=== PATIENT | female | born 1970 | race Caucasian/White ===

== ENCOUNTER 2017-11-05 10:08 | Emergency (ER) | payer OTHER ==
[~2017-11-05] VITALS: Ht 154.9 cm; Wt 52.2 kg
[~2017-11-05 10:08] MED LIST: AUGMENTIN 875-1 EACH PO; BACTRIM DS TAB1 EACH PO; CYCLOBENZAPRINE10 M1 PO; FLUOXETINE HCL40 M1 PO; IBUPROFEN800 M1 PO; LINZESS145 MC1 PO; MOBIC15 M1 PO; PERCOCET 5-3251 EACH PO; POTASSIUM 25 M25 MEQ PO; PROAIR HFA8.5 GM INH
[2017-11-05 10:10] VITALS: BP 162/91
[2017-11-05] MEDS ORDERED: LINZESS290 MC1 PO (11:01)
--- NOTE | 2017-11-05 11:20 | ED GI/GU/ABDOMINAL COMPLAINT ---
History of Present Illness General Chief Complaint: Female Urogenital Problems Stated Complaint: ? KIDNEY INFECTION Source: patient Exam Limitations: no limitations Vital Signs & Intake/Output Vital Signs & Intake/Output Vital Signs Date Time Temp Pulse Resp B/P B/P Pulse O2 O2 Flow FiO2 Mean Ox Delivery Rate 11/05 1010 98.2 79 15 162/91 100 Room Air Room Air Allergies Coded Allergies: No Known Allergies (11/05/17) Reconcile Medications Fluoxetine HCl 40 MG CAPSULE 1 CAP PO DAILY DEPRESSION (Reported) Hydrocodone/Acetaminophen (Hydrocodon-Acetaminophen 5-325) 5 MG-325 MG TABLET 1-2 TAB PO Q4-6 PRN PRN PAIN Ibuprofen 800 MG TABLET 1 TAB PO TIDPRN CHRONIC BACK PAIN (Reported) Linaclotide (Linzess) 290 MCG CAPSULE 1 CAP PO DAILY GI (Reported) Triage Note: PT TO ED FOR C/C OF BILATERAL FLANK PAIN X 2 WEEKS, AND HEMATURIA X A COUPLE OF DAYS. PT REPORTS +DYSURIA. RECENTLY DIAGNOSED AND TREATED AT [facility] A MONTH AGO FOR SAME AND DIAGNOSED WITH KIDNEY INFECTION. Triage Nurses Notes Reviewed? yes ? n Is pt currently ? No Onset: Abrupt Duration: week(s):, constant Timing: recent history Quality/Severity: moderate Location: left flank, right flank No Modifying Factors: none HPI: 47-year-old female comes into the emergency room complaints of bilateral flank pain. Patient reports that the symptoms have going on for the past month. She was diagnosed with a kidney infection. Denies any fever or vomiting. She has increased urination. Denies any abdominal pain. She comes in for further evaluation. Past History Travel History Traveled to [place] past 21 day No Medical History Any Pertinent Medical History? 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 No Review of Systems Review of Systems Constitutional: Reports: no symptoms. EENTM: Reports: no symptoms. Respiratory: Reports: no symptoms. Cardiovascular: Reports: no symptoms. GI: Reports: no symptoms. Genitourinary: Reports: no symptoms. Musculoskeletal: Reports: see HPI. Skin: Reports: no symptoms. Neurological/Psychological: Reports: no symptoms. Hematologic/Endocrine: Reports: no symptoms. Immunologic/Allergic: Reports: no symptoms. All Other Systems: Reviewed and Negative Physical Exam Physical Exam General Appearance: well developed/nourished, alert, awake Head: atraumatic Eyes: Bilateral: normal appearance, EOMI. Ears, Nose, Throat, Mouth: hearing grossly normal, moist mucous membrane Neck: normal inspection Respiratory: no respiratory distress Cardiovascular: regular rate/rhythm Gastrointestinal: soft, non-tender Back: CVA tenderness (R), CVA tenderness (L) Extremities: normal range of motion Neurologic/Psych: awake, alert, oriented x 3 Skin: intact, normal color Core Measures ACS in differential dx? No Sepsis Present: No Sepsis Focused Exam Completed? No Progress Differential Diagnosis: appendicitis, kidney stone, UTI/pyelo, muscle strain, shingles Plan of Care: Orders Procedure Date/time Status COMPREHENSIVE METABOLIC PANEL 11/05 1054 Complete CBC WITHOUT DIFFERENTIAL 11/05 1054 Complete URINE 11/05 1039 Complete URINALYSIS 11/05 1014 Complete Laboratory Tests 11/05/17 1121: Anion Gap 11, Estimated GFR > 60, BUN/Creatinine Ratio 20.0, Glucose 86, Calcium 9.2, Total Bilirubin 0.4, AST 23, ALT 32, Alkaline Phosphatase 47, Total Protein 6.3, Albumin 3.6, Globulin 2.7, Albumin/Globulin Ratio 1.3, CBC w Diff NO MAN DIFF REQ, RBC 3.96 L, MCV 93.8, MCH 32.2 H, MCHC 34.4, RDW 15.9 H, MPV 8.3, Gran % 48.8, Lymphocytes % 37.3, Monocytes % 12.2 H, Eosinophils % 1.1, Basophils % 0.6, Absolute Granulocytes 2.1, Absolute Lymphocytes 1.6, Absolute Monocytes 0.5, Absolute Eosinophils 0, Absolute Basophils 0 11/05/17 1045: Urine Test NEGATIVE 11/05/17 1045: Urine Color ANGUS, Urine Clarity HAZY H, Urine pH 6.5, Ur Specific [place] 1.025, Urine Protein TRACE H, Urine Ketones NEG, Urine Nitrite NEG, Urine Bilirubin NEG@ICTO, Urine Urobilinogen 0.2, Ur Leukocyte Esterase NEG, Ur Microscopic SEDIMENT EXAMINED, Urine RBC 10-15 H, Urine WBC 5-10 H, Ur Epithelial Cells MANY H, Urine Bacteria MOD H, Urine Hemoglobin LARGE H, Urine Glucose NEG Initial ED EKG: none Comments: 11/05/2017 1:46:20 PM Symptoms are likely most consistent with renal colic. Patient declined any imaging here in the emergency room and would rather follow up for outpatient imaging. Patient was prescribed Vicodin for pain. Rest. Drink plenty of fluids. She understands and agrees with plan of care. She needs short interval follow-up with her PCP and urology. She was provided a outpatient slip for renal ultrasounds due to the fact that she did not want to stay here for any diagnostic imaging. She denies any abdominal pain. She denies any chest pain shortness of breath. Departure Departure Disposition: HOME OR SELF CARE Condition: Stable Clinical Impression Primary Impression: Renal colic, bilateral Referrals: Kelly Pierre APRN (PCP/Family) Ricky Knight MD Additional Instructions: Take Vicodin for pain. Follow-up with urologist. Drink plenty fluids. Follow up for outpatient ultrasound of kidneys. Please go over all results of today's visit with your primary care doctor. Contact your primary care doctor to let them know you were here in the emergency room. There may be nonspecific findings which may not be related to your visit today here in the emergency room but may require further evaluation and chronic monitoring by your primary care doctor. If you had a laceration today the chance of foreign body always remains. You should follow-up with your primary care doctor for recheck in 3-5 days for a wound check. If you had an x-ray done there is a chance that a fracture could have been missed on initial read and you should follow-up with your primary care doctor for repeat x-rays if symptoms persist. If your blood pressure was elevated here in the emergency room please have rechecked by [facility] primary care doctor within the next 48. If you were prescribed a narcotic here in the emergency room or any type of controlled substances you're not allowed to drive while taking this medication or operate any type of heavy machinery. Narcotics can make you feel lightheaded dizziness nausea and can cause constipation. You may need to bulk picker a stool softener. Thank you for choosing [facility] emergency room. Please return to the emergency room immediately if you have any other concerns worsening of symptoms. Departure Forms: Customer Survey General Discharge Information Prescriptions: Current Visit Scripts Hydrocodone/Acetaminophen (Hydrocodon-Acetaminophen 5-325) 1-2 TAB PO Q4-6 PRN PRN PAIN #10 TAB
[2017-11-05 11:27] LABS: ABSOLUTE BASOPHIL COUNT 0 /CUMM (0.0-0.2); ABSOLUTE EOSINOPHIL COUNT 0 /CUMM (0.0-0.7); ABSOLUTE GRANULOCYTE CT 2.1 /CUMM (1.4-6.5); ABSOLUTE LYMPH COUNT 1.6 /CUMM (1.2-3.4); ABSOLUTE MONOCYTE COUNT 0.5 /CUMM (0.10-0.60); BASOPHIL % 0.6 % (0.0-2.0); EOSINOPHIL % 1.1 % (0-5); GRANULOCYTE % 48.8 % (42.2-75.2); HEMATOCRIT 37.1 % (37-47); MEAN CORPUSCULAR HGB 32.2 PG (27.0-31.0); MEAN CORPUSCULAR HGB CONC 34.4 G/DL (33.0-37.0); MEAN CORPUSCULAR VOLUME 93.8 FL (81.0-99.0); MEAN PLATELET VOLUME 8.3 FL (7.4-10.4); PLATELET COUNT 251 /CUMM (130-400); RBC DISTRIBUTION WIDTH 15.9 % (11.5-14.5); RED BLOOD CELL CT 3.96 /CUMM (4.20-5.40); WHITE BLOOD CELL COUNT 4.3 /CUMM (4.8-10.8)
[2017-11-05] MEDS ORDERED: HYDROCODON-ACE1 EAC2 PO (12:28)
== END 2017-11-05 12:33 ==
LOC: ERH 10:08
PROVIDERS: Physician Assistant Medical
DX: N23 Unspecified renal colic (principal)
CPT/HCPCS: 81001; 81025

== ENCOUNTER 2018-01-24 16:18 | Emergency (ER) | payer OTHER ==
[~2018-01-24] VITALS: Ht 154.9 cm; Wt 49.9 kg
[~2018-01-24 16:18] MED LIST changes: +HYDROCODON-ACE1 EAC2 PO; +LINZESS290 MC1 PO
[2018-01-24 16:28] VITALS: BP 123/78
[2018-01-24] MEDS ORDERED: VOLTAREN100 GM TOP (17:09)
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
== END 2018-01-24 17:36 ==
LOC: ERH 16:18
DX: M54.12 Radiculopathy, cervical region (principal)